=== PATIENT | male | born 1985 | race Caucasian/White ===

== ENCOUNTER 2020-10-24 20:20 | Emergency (ER) | payer BC ==
[2020-10-24 20:26] VITALS: BP 135/86; PULSE 76; TEMP 98.1; BMI 27.3
== END 2020-10-24 20:38 | disposition home or self-care (01) ==
LOC: FER 20:20
DX: S61.012A Laceration without foreign body of left thumb without damage to nail, initial encounter (principal)
CPT/HCPCS: 99282-25